=== PATIENT | male | born 1940 | race Caucasian/White ===

== ENCOUNTER → 2016-10-06 | Outpatient (CLI) | payer MEDICARE ==
[2016-10-06 11:11] LABS: Blood Urea Nitrogen 24 mg/dL (9-20); Non-African American GFR(MDRD) >60 (>60 ml/min/1.73 sqM)
== END | disposition home or self-care (01) ==
LOC: LABWHC1 09:57
PROVIDERS: ATTEND Physical Medicine & Rehabilitation
DX: M48.06 Spinal stenosis, lumbar region (principal); M47.896 Other spondylosis, lumbar region; M54.5 Low back pain; Z86.39 Personal history of other endocrine, nutritional and metabolic disease; Z85.46 Personal history of malignant neoplasm of prostate
CPT/HCPCS: 36415; 82565; 84520

== ENCOUNTER 2017-10-20 06:34 | Day surgery (SDC) | payer MEDICARE ==
[~2017-10-20 06:34] MED LIST: LIDOCAINE 1% 20 ML VIAL (10MG/ML) FOR IV START INTRADERMA PRN; ONDANSETRON 4 MG/2 ML VIAL IVP ONE
[2017-10-20] MEDS: PHENYLEPHRINE 10% OPHTH DROPS 5 ML BTL OP ONE ×3 (07:03→07:17)
[2017-10-20] MEDS: CYCLOPENTOLATE 1% OPHTH SOLN 2 ML BTL OP ONE ×3 (07:05→07:19)
[2017-10-20] MEDS: FLURBIPROFEN 0.03% OPHTH DROPS 2.5 ML BTL OP ONE ×3 (07:08→07:21)
[2017-10-20] MEDS: LACTATED RINGERS 1,000 ML IV SCH ×2 (07:14→07:47)
[2017-10-20] MEDS ORDERED: LIDOCAINE 1% 20 ML VIAL (10MG/ML) FOR IV START INTRADERMA ONE (07:14)
[2017-10-20 07:17] VITALS: TEMP 97.8
[2017-10-20 07:17] LABS: Glucose,Whole Blood 92 mg/dL (75-99)
[2017-10-20] MEDS ORDERED: BALANCED SALT IRRIG SOLN COMB2 15 ML IRRIG.SOLN IRRIGATION ONE (07:33)
[2017-10-20] MEDS: BUPIVACAINE (PF) 0.75% 5 ML, HYALURONIDASE, HUMAN RECOMB 150 UNIT, LIDOCAINE 2% (PF) 10... MISCELLANE ONE ×6 (07:33→07:54)
[2017-10-20] MEDS ORDERED: HYALURONATE SODIUM INTRAOCULAR 1 EACH SYRINGE (10MG/ML) INTRAOCULA ONE (07:33)
[2017-10-20] MEDS ORDERED: PROPOFOL 10 MG/ML 20 ML VIAL IV ONE (07:48)
[2017-10-20] MEDS ORDERED: EPINEPHrine (PF) 0.5 ML in BALANCED SALT IRRIG SOLN COMB2 500 ML IRRIGATION ONE (07:51)
[2017-10-20 08:15] VITALS: RESP 18
--- NOTE | 2017-10-20 08:16 | P.OP ---
Date of Procedure: 10/20/17 Procedure(s) Performed: PREOPERATIVE DIAGNOSIS: Cataract, left eye. POSTOPERATIVE DIAGNOSIS: Cataract, left eye. OPERATION: Phacoemulsification cataract, left eye. DESCRIPTION OF PROCEDURE: The patient was taken to the preoperative holding area. Intravenous Propofol was given so as to bring about adequate sedation. The following mixture was given for local anesthesia: 5 mL of 2% lidocaine, 5 mL of 0.75% Marcaine, and 1 mL of Wydase. Approximately 4 mL was injected in the retrobulbar space of the surgical eye. Additional 1 mL was then directed to the temporal area of the surgical eye. This was performed to allow adequate neurological block of the facial muscles. The patient was revived and then taken into the operative room. The patient was prepped and draped in the usual sterile manner for the operative eye. A lid speculum was put into position. The conjunctiva was resected back from the limbus in the 12 o'clock position. Bleeding was controlled with electrocautery. A #69 blade was then used and a half-thickness scleral incision approximately 1-mm posterior to the limbus was made on bare sclera. This was shelved in the clear cornea using a crescent knife. Next a 15-degree blade was used to make a stab incision at the 3 o' clock position at the corneolimbal interface. Keratome blade was then used and the superior wound was extended into the anterior chamber. Viscoelastic was injected into the anterior chamber and to maintain its form. Next, a cystotome was used and a continuous anterior capsulotomy was made without difficulty. Hydrodissection using a blunt cannula and BSS was performed. Phaco probe was then employed and a groove extending from 12 to 6 o'clock in the lens was created. A Mehran wand was used through the stab incision so as to perform a divide and conquer technique. Next an irrigation aspiration probe was utilized and any residual cortex was removed from the eye. Again, viscoelastic was injected into the anterior chamber. An Kelechi posterior chamber lens implant was placed in the cartridge and injected into the anterior chamber without difficulty. The SinHaivisioney hook was utilized to spin the lens into position and this was again performed without any difficulty. The irrigation and aspiration probe was again employed and any residual viscoelastic was removed from the eye. Then BSS was injected into the limbal stab incision and the anterior chamber re-inflated. The conjunctiva was reapproximated using electrocautery. One drop of 0.25% Timoptic was placed over the corneal along with TobraDex ophthalmic ointment. Two sterile patches and a Hyatt eye shield were taped into position. The patient was transported to the recovery room in stable condition. Pathology: none sent Condition: stable Disposition: same day
[2017-10-20 08:30] VITALS: BP 141/65; PULSE 46
[2017-10-20] MEDS ORDERED: TIMOLOL 0.5% OPHTH SOLN (PF) 0.2 ML DROPERETTE OP ONE (23:00)
[2017-10-20] MEDS ORDERED: GENTAMICIN/PREDNISOL AC OPHTH OINT 3.5GM OPHTHALMIC ONE (23:00)
== END 2017-10-20 09:10 | disposition home or self-care (01) ==
LOC: OR 06:34
PROVIDERS: ATTEND Ophthalmology
DX: E11.36 Type 2 diabetes mellitus with diabetic cataract (principal); Z79.84 Long term (current) use of oral hypoglycemic drugs; I25.10 Atherosclerotic heart disease of native coronary artery without angina pectoris; I10 Essential (primary) hypertension; Z87.891 Personal history of nicotine dependence; M19.90 Unspecified osteoarthritis, unspecified site; J44.9 Chronic obstructive pulmonary disease, unspecified; K21.9 Gastro-esophageal reflux disease without esophagitis; Z79.82 Long term (current) use of aspirin; Z79.899 Other long term (current) drug therapy; Z91.041 Radiographic dye allergy status
CPT/HCPCS: 66984; V2632; J3470; J2001; J0171; J2704

== ENCOUNTER → 2018-06-15 | Outpatient (CLI) | payer MEDICARE ==
[2018-06-15 12:22] LABS: Blood Urea Nitrogen 30 mg/dL (9-20)
== END | disposition home or self-care (01) ==
LOC: LABWHC1 11:20
PROVIDERS: ATTEND Otolaryngology Otology & Neurotology
DX: D33.3 Benign neoplasm of cranial nerves (principal)
CPT/HCPCS: 36415; 82565; 84520

== ENCOUNTER → 2018-06-23 | Outpatient (CLI) | payer MEDICARE ==
[2018-06-23 11:50] LABS: Blood Urea Nitrogen 29 mg/dL (9-20)
== END ==
LOC: LABWHC1 10:58
PROVIDERS: ATTEND Otolaryngology Otology & Neurotology
DX: D33.3 Benign neoplasm of cranial nerves (principal)
CPT/HCPCS: 36415; 82565; 84520

== ENCOUNTER 2019-02-23 17:29 | Emergency (ER) | payer MEDICARE ==
--- NOTE | 2019-02-23 18:40 | XR ---
PROCEDURE: XR forearm LT - 2V DATE AND TIME: 02/23/2019 6:14 PM CLINICAL INDICATION: PHH; Pain TECHNIQUE: Department protocol COMPARISON: None FINDINGS: There is no fracture or malalignment. The soft tissues are unremarkable. IMPRESSION: NO ACUTE PROCESS.
--- NOTE | 2019-02-23 19:05 | CT ---
EXAMINATION TYPE: CT brain raymon mejia DATE OF EXAM: 02/23/2019 COMPARISON: None HISTORY: Lawn tractor fell from chain fall and hit patient on top of head, pushing his head forward. Neck pain. CT DLP: 1471 mGycm Automated exposure control for dose reduction was used. TECHNIQUE: CT scan of the head and cervical spine are performed without contrast. FINDINGS: There is no acute intracranial hemorrhage, mass effect, or midline shift identified. The ventricles and sulci are within normal limits in size. The globes are intact and the visualized sin uses are clear. Cervical spine is visualized in its entirety from C1 through upper thoracic levels and demonstrates s atisfactory alignment without evidence of acute fracture or dislocation. Prevertebral soft tissue ap pears within normal limits. The C1-C2 articulation is unremarkable. IMPRESSION: 1. There is no acute fracture or dislocation evident in the cervical spine. 2. No acute intracranial hemorrhage, mass effect, or midline shift is seen.
[2019-02-23] MEDS ORDERED: DIPH,PERTUS(ACELL)TETVAC-LF 0.5 ML VIAL IM ONE (19:38)
[2019-02-23] MEDS ORDERED: CEPHALEXIN 500MG STARTER PACK 4 CAP BTL PO STA (19:41)
--- NOTE | 2019-02-23 20:33 | ED ---
General Adult HPI - General Chief complaint: Trauma Stated complaint: HEAD, NECK, LEFT ARM, LEFT HAND, CRUSHING INJURY Time Seen by Provider: 02/23/19 19:30 Source: patient Mode of arrival: ambulatory Limitations: no limitations - History of Present Illness Initial comments: 79-year-old male patient presents to the emergency department today for evaluati on after a tractor fell on him. Patient states around 5:00 this afternoon he was working on his tractor, states the front end was being held up by a strap. He states the strap broke and the tractor fell down upon him. States the front bumper struck him in the head and caused injury to his left forearm. Patient denies any chest or abdominal injury. Denies any loss of consciousness with this. Denies any current headache, neck pain, or back pain. Patient denies any use of anticoagulant or antiplatelet medications. Denies any shortness of breath, abdominal pain, nausea, or vomiting. Denies any numbness or tingling to the extremities. Denies any dizziness or weakness. Patient denies any chest pain, or difficulties with bowel movements or urination. He is unsure when his last tetanus vaccine was given. - Related Data Home Medications Medication Instructions Recorded Confirmed Lovastatin [Mevacor] 40 mg PO DAILY 10/09/17 02/23/19 Metoprolol Tartrate 12.5 mg PO BID 10/09/17 02/23/19 Pioglitazone [Actos] 30 mg PO DAILY 10/09/17 02/23/19 Sertraline [Zoloft] 150 mg PO DAILY 10/09/17 02/23/19 glyBURIDE [Diabeta] 7.5 mg PO DAILY 10/09/17 02/23/19 Lisinopril-Hctz 20-12.5 mg 1 tab PO BID 02/23/19 02/23/19 [Zestoretic 20-12.5] glyBURIDE [Diabeta] 2.5 mg PO HS 02/23/19 02/23/19 Previous Rx's Medication Instructions Recorded Cephalexin [Keflex] 500 mg PO Q6H #28 cap 02/23/19 Allergies Allergy/AdvReac Type Severity Reaction Status Date / Time Iodinated Contrast- Oral and Allergy Unknown Verified 02/23/19 20:37 IV Dye [Iodinated Contrast Media - IV Dye] Review of Systems ROS Statement: Those systems with pertinent positive or pertinent negative responses have been documented in the HPI. ROS Other: All systems not noted in ROS Statement are negative. Past Medical History Past Medical History: Cancer, COPD, Diabetes Mellitus, Hyperlipidemia, Hypertension Additional Past Medical History / Comment(s): Prostate cancer, cataracts, INNER EAR TUMOR (ACOUSTIC NEUROMA) History of Any Multi-Drug Resistant Organisms: None Reported Past Surgical History: Appendectomy, Heart Catheterization, Orthopedic Surgery, Prostate Surgery Additional Past Surgical History / Comment(s): cyst removed right hand, cataract surgery, PROSTATECOMY. BILATERAL ROTATOR CUFF. Past Anesthesia/Blood Transfusion Reactions: Motion Sickness Past Psychological History: Anxiety Smoking Status: Former smoker Past Alcohol Use History: Rare Past Drug Use History: None Reported General Exam Limitations: no limitations General appearance: alert, in no apparent distress, other (This is a well- developed, well-nourished elderly male patient in no acute distress. Vital signs upon presentation are temperature 97.1F, pulse 64, respirations 18, blood pressure 122/71, pulse ox 97% on room air.) Head exam: Present: other (There is an abrasion noted to the parietal scalp. No active bleeding. No bony step-off or deformity noted to palpation surrounding the site.) Eye exam: Present: normal appearance, PERRL, EOMI. Absent: scleral icterus, conjunctival injection, nystagmus, periorbital swelling ENT exam: Present: normal exam, normal oropharynx, mucous membranes moist, TM's normal bilaterally, other (No raccoon or Martinez sign) Neck exam: Present: normal inspection, other (No bony step-off or deformity noted to for midline palpation of the posterior cervical spine. No tenderness.). Absent: tenderness, meningismus, full ROM (C-collar in place), lymphadenopathy Respiratory exam: Present: normal lung sounds bilaterally. Absent: respiratory distress, wheezes, rales, rhonchi, stridor Cardiovascular Exam: Present: regular rate, normal rhythm, normal heart sounds. Absent: systolic murmur, diastolic murmur, rubs, gallop, clicks GI/Abdominal exam: Present: soft, normal bowel sounds. Absent: distended, tenderness, guarding, rebound, rigid Extremities exam: Present: full ROM, normal capillary refill, other (There is a large skin tear noted to the left dorsal forearm, bleeding is controlled. There is also soft tissue swelling and ecchymosis noted surrounding the site. Skin is otherwise pink, warm, dry. Cap refills less than 3 seconds. Radial pulses 2+ and equal bilaterally.). Absent: normal inspection, tenderness, pedal edema, joint swelling, calf tenderness Back exam: Present: normal inspection, other (Nontender, no step-off, no deformity to firm midline palpation of the thoracic and lumbar vertebrae. Full range of motion without pain or limitation.). Absent: vertebral tenderness Neurological exam: Present: alert, oriented X3, CN II-XII intact Psychiatric exam: Present: normal affect, normal mood Skin exam: Present: warm, dry, intact, normal color. Absent: rash Course Vital Signs 02/23/19 02/23/19 17:32 20:45 Temperature 97.1 F L 97.9 F Pulse Rate 64 86 Respiratory 18 16 Rate Blood Pressure 122/71 158/75 O2 Sat by Pulse 97 98 Oximetry Medical Decision Making - Medical Decision Making 79-year-old male patient presented to the emergency department today for evaluation of head injury and left forearm injury after a tractor fell on top of him. Physical examination did reveal abrasion to the parietal scalp and skin tear to the left forearm with surrounding hematoma. X-rays of the left forearm and CT brain and C-spine were obtained and showed no acute abnormalities. I did perform wound care to the left skin tear. Dressing was applied. We did update patient's tetanus. We'll discharge to follow-up with his primary care physician for recheck in 1-2 days. He was educated regarding signs or symptoms of infection and appropriate wound care practices. Return parameters were discussed in detail. He verbalizes understanding and agrees with this plan. - Radiology Data Radiology results: report reviewed, image reviewed Two-view x-ray of the left forearm is obtained. Report was reviewed in its entirety. Impression by Dr. Jocy Gage shows no acute process. CT brain and C-spine without contrast was obtained. Report was reviewed in its entirety. Impression by Dr. Jocy Gage shows no acute fracture dislocation evident in the cervical spine. No acute intracranial hemorrhage, mass effect, or midline shift is seen. Disposition Clinical Impression: Head injury, Scalp abrasion, Skin tear of left forearm without complication, Contusion of left forearm Disposition: HOME SELF-CARE Condition: Good Instructions (If sedation given, give patient instructions): Head Injury (ED), Contusion in Adults (ED), Abrasion (ED), Skin Tear (ED) Additional Instructions: Perform wound care daily - cleanse with warm water and antibacterial soap, apply antibiotic ointment, apply oil dressing, apply gauze, wrap with gauze roll. Monitor for signs or symptoms of infection including but not limited to redness, swelling, drainage of pus, fever, or chills. Complete antibiotic prescription in full. Follow-up with your primary care physician for recheck in 1-2 days. Return to the emergency department immediately for any new, worsening, or concerning symptoms. Prescriptions: Cephalexin [Keflex] 500 mg PO Q6H #28 cap Is patient prescribed a controlled substance at d/c from ED?: No Referrals: Carlton Felix MD [Primary Care Provider] - 1-2 days Time of Disposition: 20:33
[2019-02-23 20:46] VITALS: BP 158/75; PULSE 86; RESP 16; TEMP 97.9
== END 2019-02-23 20:53 | disposition home or self-care (01) ==
LOC: EC 17:29
DX: S51.812A Laceration without foreign body of left forearm, initial encounter (principal); S00.01XA Abrasion of scalp, initial encounter; S17.9XXA Crushing injury of neck, part unspecified, initial encounter; E11.9 Type 2 diabetes mellitus without complications; E78.5 Hyperlipidemia, unspecified; I10 Essential (primary) hypertension; F41.9 Anxiety disorder, unspecified; Z85.46 Personal history of malignant neoplasm of prostate; Z95.818 Presence of other cardiac implants and grafts; Z87.891 Personal history of nicotine dependence; Z79.84 Long term (current) use of oral hypoglycemic drugs; Z79.899 Other long term (current) drug therapy; Z91.041 Radiographic dye allergy status; Z23 Encounter for immunization; W20.8XXA Other cause of strike by thrown, projected or falling object, initial encounter; Y93.89 Activity, other specified
CPT/HCPCS: 73090; 72125; 70450; 90715; 99284; 90471; L0120

== ENCOUNTER → 2021-07-18 | Outpatient (CLI) | payer MEDICARE ==
--- NOTE | 2021-07-18 14:41 | XR ---
EXAMINATION TYPE: XR chest 2V DATE OF EXAM: 07/18/2021 COMPARISON: Chest x-ray 11/27/2013 HISTORY: R07.89 OTHER CHEST PAIN TECHNIQUE: Frontal and lateral views of the chest are obtained. FINDINGS: There is no focal air space opacity, pleural effusion, or pneumothorax seen. The cardiac silhouette size is within normal limits. The osseous structures are intact and there is thoracic sp ondylosis, spinal curvature, flowing anterior osteophytes along the thoracic spine with relative pres ervation of the disc spaces suggest diffuse idiopathic skeletal hyperostosis. IMPRESSION: No acute cardiopulmonary process. Additional findings above.
== END | disposition home or self-care (01) ==
LOC: LABWHC1 13:17
PROVIDERS: ATTEND Family Medicine
DX: R07.89 Other chest pain (principal); R94.31 Abnormal electrocardiogram [ECG] [EKG]
CPT/HCPCS: 36415; 71046; 93005

== ENCOUNTER 2021-11-24 12:13 | Inpatient (IN) | payer MEDICARE ==
[2021-11-24] MEDS ORDERED: NITROGLYCERIN OINT 1 INCH/GM PACKET TOPICAL STA (12:25)
[2021-11-24] MEDS ORDERED: ASPIRIN 81 MG PO STA (12:25)
--- NOTE | 2021-11-24 12:29 | ED ---
General Adult HPI - General Chief complaint: Chest Pain Stated complaint: Chest Pain Time Seen by Provider: 11/24/21 12:21 Source: patient, RN notes reviewed Mode of arrival: wheelchair Limitations: no limitations - History of Present Illness Initial comments: Patient is a pleasant 81-year-old male presenting to the emergency department chest discomfort. Onset was when he woke this morning around 4 hours ago. Discomfort is mild but persistent. Discomfort feels like tightness. No associated dyspnea, nausea, or diaphoresis. Patient does have history of heart catheterization around 5 years ago with some plaque buildup however did not need a stent. No leg pain or leg swelling. - Related Data Home Medications Medication Instructions Recorded Confirmed Lovastatin [Mevacor] 40 mg PO DAILY 10/09/17 02/23/19 Metoprolol Tartrate 12.5 mg PO BID 10/09/17 02/23/19 Pioglitazone [Actos] 30 mg PO DAILY 10/09/17 02/23/19 Sertraline [Zoloft] 150 mg PO DAILY 10/09/17 02/23/19 glyBURIDE [Diabeta] 7.5 mg PO DAILY 10/09/17 02/23/19 Lisinopril-Hctz 20-12.5 mg 1 tab PO BID 02/23/19 02/23/19 [Zestoretic 20-12.5] glyBURIDE [Diabeta] 2.5 mg PO HS 02/23/19 02/23/19 Previous Rx's Medication Instructions Recorded Cephalexin [Keflex] 500 mg PO Q6H #28 cap 02/23/19 Allergies Allergy/AdvReac Type Severity Reaction Status Date / Time Iodinated Contrast Media Allergy Unknown Verified 11/24/21 12:18 [Iodinated Contrast Media - IV Dye] Review of Systems ROS Statement: Those systems with pertinent positive or pertinent negative responses have been documented in the HPI. ROS Other: All systems not noted in ROS Statement are negative. Constitutional: Denies: fever Eyes: Denies: eye pain ENT: Denies: ear pain Respiratory: Denies: cough Cardiovascular: Reports: chest pain Endocrine: Denies: fatigue Gastrointestinal: Denies: abdominal pain Genitourinary: Denies: dysuria Musculoskeletal: Denies: back pain Skin: Denies: rash Neurological: Denies: weakness Past Medical History Past Medical History: Cancer, COPD, Diabetes Mellitus, Hyperlipidemia, Hypertension Additional Past Medical History / Comment(s): Prostate cancer, cataracts, INNER EAR TUMOR (ACOUSTIC NEUROMA) History of Any Multi-Drug Resistant Organisms: None Reported Past Surgical History: Appendectomy, Heart Catheterization, Orthopedic Surgery, Prostate Surgery Additional Past Surgical History / Comment(s): cyst removed right hand, cataract surgery, PROSTATECOMY. BILATERAL ROTATOR CUFF. Past Anesthesia/Blood Transfusion Reactions: Motion Sickness Past Psychological History: Anxiety Smoking Status: Former smoker Past Alcohol Use History: Rare Past Drug Use History: None Reported General Exam Limitations: no limitations General appearance: alert, in no apparent distress Head exam: Present: normocephalic Eye exam: Present: normal appearance Neck exam: Present: normal inspection Respiratory exam: Present: normal lung sounds bilaterally. Absent: chest wall tenderness Cardiovascular Exam: Present: regular rate, normal rhythm, normal heart sounds Expanded Peripheral pulses: 2+: Radial (R), Radial (L), Posterior Tibialis (R), Posterior Tibialis (L) GI/Abdominal exam: Present: soft. Absent: tenderness Extremities exam: Present: normal inspection. Absent: pedal edema, calf tenderness Neurological exam: Present: alert Psychiatric exam: Present: normal affect, normal mood Skin exam: Present: normal color Course Vital Signs 11/24/21 11/24/21 12:16 12:37 Temperature 98.3 F Pulse Rate 61 80 Respiratory 18 18 Rate Blood Pressure 137/81 128/76 O2 Sat by Pulse 96 96 Oximetry EKG Findings - EKG Comments: EKG Findings:: Sinus rhythm rate of 62. [place] 182. QRS 87. QT 302. QTC 37. Normal QRS. No acute ST change Medical Decision Making - Medical Decision Making Patient reevaluated and unchanged. Patient is updated on results and plan. Dr. Jack has been paged for admission, covering Dr. Felix. - Lab Data Result diagrams: 11/24/21 12:28 11/24/21 12:28 Lab Results 11/24/21 11/24/21 11/24/21 Range/Units 12:28 12:28 12:28 WBC 8.9 (3.8-10.6) k/uL RBC 4.85 (4.30-5.90) m/uL Hgb 15.6 (13.0-17.5) gm/dL Hct 47.6 (39.0-53.0) % MCV 98.1 (80.0-100.0) fL MCH 32.2 (25.0-35.0) pg MCHC 32.9 (31.0-37.0) g/dL RDW 12.8 (11.5-15.5) % Plt Count 242 (150-450) k/uL MPV 6.9 Neutrophils % 72 % Lymphocytes % 19 % Monocytes % 5 % Eosinophils % 1 % Basophils % 0 % Neutrophils # 6.4 (1.3-7.7) k/uL Lymphocytes # 1.7 (1.0-4.8) k/uL Monocytes # 0.5 (0-1.0) k/uL Eosinophils # 0.1 (0-0.7) k/uL Basophils # 0.0 (0-0.2) k/uL PT 10.2 (9.0-12.0) sec INR 0.9 (<1.2) APTT 24.9 (22.0-30.0) sec Sodium 136 L (137-145) mmol/L Potassium 4.6 (3.5-5.1) mmol/L Chloride 105 (98-107) mmol/L Carbon Dioxide 23 (22-30) mmol/L Anion Gap 8 mmol/L BUN 23 H (9-20) mg/dL Creatinine 0.87 (0.66-1.25) mg/dL Est GFR (CKD-EPI)AfAm >90 (>60 ml/min/1.73 sqM) Est GFR (CKD-EPI)NonAf 82 (>60 ml/min/1.73 sqM) Glucose 173 H (74-99) mg/dL Calcium 9.6 (8.4-10.2) mg/dL Magnesium 2.1 (1.6-2.3) mg/dL Total Bilirubin 0.7 (0.2-1.3) mg/dL AST 27 (17-59) U/L ALT 30 (4-49) U/L Alkaline Phosphatase 90 (38-126) U/L Troponin I (0.000-0.034) ng/mL Total Protein 7.7 (6.3-8.2) g/dL Albumin 4.6 (3.5-5.0) g/dL 11/24/21 Range/Units 12:28 WBC (3.8-10.6) k/uL RBC (4.30-5.90) m/uL Hgb (13.0-17.5) gm/dL Hct (39.0-53.0) % MCV (80.0-100.0) fL MCH (25.0-35.0) pg MCHC (31.0-37.0) g/dL RDW (11.5-15.5) % Plt Count (150-450) k/uL MPV Neutrophils % % Lymphocytes % % Monocytes % % Eosinophils % % Basophils % % Neutrophils # (1.3-7.7) k/uL Lymphocytes # (1.0-4.8) k/uL Monocytes # (0-1.0) k/uL Eosinophils # (0-0.7) k/uL Basophils # (0-0.2) k/uL PT (9.0-12.0) sec INR (<1.2) APTT (22.0-30.0) sec Sodium (137-145) mmol/L Potassium (3.5-5.1) mmol/L Chloride (98-107) mmol/L Carbon Dioxide (22-30) mmol/L Anion Gap mmol/L BUN (9-20) mg/dL Creatinine (0.66-1.25) mg/dL Est GFR (CKD-EPI)AfAm (>60 ml/min/1.73 sqM) Est GFR (CKD-EPI)NonAf (>60 ml/min/1.73 sqM) Glucose (74-99) mg/dL Calcium (8.4-10.2) mg/dL Magnesium (1.6-2.3) mg/dL Total Bilirubin (0.2-1.3) mg/dL AST (17-59) U/L ALT (4-49) U/L Alkaline Phosphatase (38-126) U/L Troponin I <0.012 (0.000-0.034) ng/mL Total Protein (6.3-8.2) g/dL Albumin (3.5-5.0) g/dL - Radiology Data Radiology results: image reviewed Disposition Clinical Impression: Chest pain Disposition: ADMITTED IP TO THIS [facility] Is patient prescribed a controlled substance at d/c from ED?: No Referrals: Carlton Felix MD [Primary Care Provider] - 1-2 days Decision Time: 13:20
[2021-11-24 12:39] LABS: Basophils % (A) 0 %; Eosinophils # (A) 0.1 k/uL (0-0.7); Eosinophils % (A) 1 %; HCT 47.6 % (39.0-53.0); HGB 15.6 gm/dL (13.0-17.5); Lymphocytes # (A) 1.7 k/uL (1.0-4.8); Lymphocytes % (A) 19 %; MCH 32.2 pg (25.0-35.0); MCHC 32.9 g/dL (31.0-37.0); MCV 98.1 fL (80.0-100.0); Mean Platelet Volume 6.9; Monocytes # (A) 0.5 k/uL (0-1.0); Monocytes % (A) 5 %; Neutrophils # (A) 6.4 k/uL (1.3-7.7); Neutrophils % (A) 72 %; Platelet Count 242 k/uL (150-450); RBC 4.85 m/uL (4.30-5.90); RDW 12.8 % (11.5-15.5); WBC 8.9 k/uL (3.8-10.6)
[2021-11-24 12:51] LABS: ALT 30 U/L (4-49); AST 27 U/L (17-59); African American GFR (CKD) >90 (>60 ml/min/1.73 sqM); Albumin 4.6 g/dL (3.5-5.0); Alkaline Phosphatase 90 U/L (38-126); Anion Gap 8 mmol/L; Blood Urea Nitrogen 23 mg/dL (9-20); Calcium 9.6 mg/dL (8.4-10.2); Carbon Dioxide 23 mmol/L (22-30); Chloride 105 mmol/L (98-107); Glucose 173 mg/dL (74-99); Magnesium 2.1 mg/dL (1.6-2.3); Non-African American GFR(CKD) 82 (>60 ml/min/1.73 sqM); Potassium 4.6 mmol/L (3.5-5.1); Sodium 136 mmol/L (137-145); Total Bilirubin 0.7 mg/dL (0.2-1.3); Total Protein 7.7 g/dL (6.3-8.2)
[2021-11-24 12:54] LABS: INR 0.9 (<1.2); Partial Thromboplastin Time 24.9 sec (22.0-30.0); Prothrombin Time 10.2 sec (9.0-12.0)
[2021-11-24] MEDS ORDERED: NITROGLYCERIN SL TABS 0.4 MG TAB SUBLINGUAL PRN ×2 (13:18→17:09)
--- NOTE | 2021-11-24 13:20 | XR ---
EXAMINATION TYPE: XR chest 2V DATE OF EXAM: 11/24/2021 COMPARISON: Chest x-ray 07/18/2021 HISTORY: Chest pain TECHNIQUE: Frontal and lateral views of the chest are obtained. FINDINGS: There is no focal air space opacity, pleural effusion, or pneumothorax seen. The cardiac silhouette size is within normal limits. There are overlying leads. The osseous structures are intac t. IMPRESSION: No acute cardiopulmonary process.
[2021-11-24 17:31] LABS: Glucose,Whole Blood 174 mg/dL (75-99)
[2021-11-24] MEDS: NITROGLYCERIN OINT 1 INCH/GM PACKET TOPICAL SCH (17:51)
[2021-11-24] MEDS: INSULIN ASPART (NovoLOG) 100 UNIT/ML VIAL SQ SCH ×2 (17:51→20:58)
[2021-11-24 20:50] LABS: Glucose,Whole Blood 157 mg/dL (75-99)
[2021-11-24] MEDS: METOPROLOL TARTRATE 25 MG TAB PO SCH (20:57)
[2021-11-24] MEDS: ASPIRIN 81 MG PO SCH (20:58)
--- NOTE | 2021-11-24 21:03 | P.HPIM ---
History of Present Illness H&P Date: 11/24/21 Chief Complaint: Chest pain Patient is a 81-year-old male with a known history of hypertension, hyperlipidemia, diabetes type 2 insulin-dependent and history of prostate cancer status post surgery and prior cardiac catheterization several years ago, anxiety and previous history of smoking presents to ER with complaints of chest pain. Patient states that he woke up in the morning with chest pain and felt like tightness in the left retrosternal region. Pain lasted for about 4 hours and mild persistent since then. No associated shortness of breath. No nausea or vomiting or headache or dizziness or lightheadedness. No diaphoresis. Denied any leg swelling. No recent illnesses. Denies any exertional dyspnea. No fever no chills. Chest x-ray showed no acute cardiopulmonary process EKG showed normal sinus rhythm Laboratory showed WBC 8.9 hemoglobin 15.6 and platelets 242 sodium 136 potassium 4.6 chloride 105 BUN 23 and creatinine 0.87 blood sugar is 173 liver enzymes are not elevated troponin x2 - and magnesium 2.1. Review of Systems Constitutional: Patient denies any fever or chills . No generalized weakness or weight loss. Abdomen: Patient denied nausea vomiting and diarrhea and abdominal pain. Cardiovascular: Patient denies any chest pain or short of breath no palpitations. Respiratory: patient denied any cough or sputum production. No shortness of breath Neurologic: Patient denied any numbness or tingling headache. Musculoskeletal: Patient denies any complaints of joint swelling or deformity. Skin: Negative Psychiatric: Negative Endocrine: No heat or cold intolerance. No recent weight gain. Genitourinary: No dysuria or hematuria. All other 14 point ROS negative except the above Past Medical History Past Medical History: Cancer, COPD, Diabetes Mellitus, Hyperlipidemia, Hypertension Additional Past Medical History / Comment(s): Prostate cancer, cataracts, INNER EAR TUMOR (ACOUSTIC NEUROMA) History of Any Multi-Drug Resistant Organisms: None Reported Past Surgical History: Appendectomy, Heart Catheterization, Orthopedic Surgery, Prostate Surgery Additional Past Surgical History / Comment(s): cyst removed right hand, cataract surgery, PROSTATECOMY. BILATERAL ROTATOR CUFF. Past Anesthesia/Blood Transfusion Reactions: Motion Sickness Past Psychological History: Anxiety Smoking Status: Former smoker Past Alcohol Use History: Rare Additional Past Alcohol Use History / Comment(s): QUIT SMOKING 2005, FOR 50 YRS, .5/PPD. Past Drug Use History: None Reported Medications and Allergies Home Medications Medication Instructions Recorded Confirmed Type Lovastatin [Mevacor] 40 mg PO DAILY 10/09/17 11/24/21 History Metoprolol Tartrate 12.5 mg PO BID 10/09/17 11/24/21 History Sertraline [Zoloft] 150 mg PO DAILY 10/09/17 11/24/21 History Lisinopril-Hctz 20-12.5 mg 1 tab PO BID 02/23/19 11/24/21 History [Zestoretic 20-12.5] glyBURIDE [Diabeta] 7.5 mg PO DAILY 02/23/19 11/24/21 History Aspirin EC [Ecotrin Low Dose] 81 mg PO BID 11/24/21 11/24/21 History Dulaglutide [Trulicity] 0.75 mg SQ WE 11/24/21 11/24/21 History LORazepam [Ativan] 0.5 mg PO DAILY PRN 11/24/21 11/24/21 History Nitroglycerin Sl Tabs [Nitrostat] 0.4 mg SUBLINGUAL Q5M PRN 11/24/21 11/24/21 History Propylene Glycol/Peg 400/Pf 1 dropper BOTH EYES HS 11/24/21 11/24/21 History [Systane 0.3-0.4% Eye Drop] Allergies Allergy/AdvReac Type Severity Reaction Status Date / Time Iodinated Contrast Media Allergy Unknown Verified 11/24/21 14:31 [Iodinated Contrast Media - IV Dye] Physical Exam Vitals: Vital Signs Temp Pulse Pulse Resp BP BP Pulse Ox 11/24/21 16:47 97.5 F L 60 16 103/66 97 11/24/21 16:16 64 18 105/62 96 11/24/21 12:37 80 18 128/76 96 11/24/21 12:16 98.3 F 61 18 137/81 96 Intake and Output 11/24/21 11/24/21 11/24/21 06:59 14:59 22:59 Other: Weight 90.718 kg PHYSICAL EXAMINATION: Patient is lying in the bed comfortably, no acute distress, awake alert and oriented.. HEENT: Normocephalic. Neck is supple. Pupils reactive. Nostrils clear. Oral cavity is moist. Neck reveals no JVD, carotid bruits, or thyromegaly. CHEST EXAMINATION: Trachea is central. Symmetrical expansion. Lung bowman clear to auscultation and percussion. CARDIAC: Normal S1, S2 with no gallops. No murmurs ABDOMEN: Soft. Bowel sounds normal. No organomegaly. No abdominal bruits. Extremities: reveal no edema. No clubbing or cyanosis Neurologically awake, alert, oriented x3 with well-coordinated movements. No focal deficits noted Skin: No rash or skin lesions. Psychiatric: Cooperative. Nonsuicidal Musculoskeletal: No joint swelling or deformity. Normal range of motion. Results CBC & Chem 7: 11/24/21 12:28 11/24/21 12:28 Labs: Abnormal Lab Results - Last 24 Hours (Table) 11/24/21 11/24/21 11/24/21 Range/Units 12:28 17:30 20:48 Sodium 136 L (137-145) mmol/L BUN 23 H (9-20) mg/dL Glucose 173 H (74-99) mg/dL POC Glucose (mg/dL) 174 H 157 H (75-99) mg/dL Thrombosis Risk Factor Assmnt - DVT/VTE Prophylaxis DVT/VTE Prophylaxis: Pharmacologic Prophylaxis ordered - Choose All That Apply Each Risk Factor Represents 3 Points: Age 75 years or older Thrombosis Risk Factor Assessment Total Risk Factor Score: 3 Thrombosis Risk Factor Assessment Level: Moderate Risk Assessment and Plan Assessment: Atypical chest pain. Ruled out ACS. Prior history of cardiac catheterization 5 years ago with some plaque buildup. Hypertension Diabetes type 2 insulin-dependent Hyperlipidemia History of prostate cancer status post surgery Anxiety Please history of smoking DVT prophylaxis with heparin subcu Plan: Patient will be continued on telemetry monitoring. Serial EKG and troponin x2 - . Patient had previous history of stress test about couple years ago and also has follow-up appointment with . Cardiology was consulted. Continue with insulin sliding scale for better blood sugar control. Patient was given a dose of aspirin and continue with aspirin and statins and metoprolol. Follow-up closely.
[2021-11-24] MEDS: NON FORMULARY DRUG (Propylene Glycol/Peg 400/Pf [Systane 0.3-0.4% Eye Drop] 1 EACH Dropere BOTH EYES SCH (21:04)
[2021-11-25] MEDS: NITROGLYCERIN OINT 1 INCH/GM PACKET TOPICAL SCH ×2 (00:02→05:51)
[2021-11-25] MEDS: HEPARIN SODIUM,PORCINE/PF 5,000 UNIT/0.5 ML SYRINGE SQ SCH ×4 (00:02→23:20)
[2021-11-25 02:22] LABS: Glucose,Whole Blood 137 mg/dL (75-99)
[2021-11-25 07:15] LABS: Glucose,Whole Blood 127 mg/dL (75-99)
[2021-11-25] MEDS ORDERED: ASPIRIN 325 MG TAB PO SCH (09:00)
[2021-11-25] MEDS ORDERED: AMINOPHYLLINE 500 MG/20 ML VIAL IV PRN (09:06)
[2021-11-25] MEDS ORDERED: CAFFEINE CITRATE 60 MG/3 ML VIAL IV PRN (09:06)
[2021-11-25] MEDS ORDERED: REGADENOSON 0.4 MG/5 ML SYRINGE IV PRN (09:06)
--- NOTE | 2021-11-25 09:39 | P.CRDCN ---
History of Present Illness History of present illness: HISTORY OF PRESENTING ILLNESS This is a pleasant 81-year-old male past medical history significant for hypertension, dyslipidemia, moderate nonobstructive coronary artery disease, COPD, type 2 diabetes, prostate cancer, and former smoker. He follows in the office with Dr. Victor. We have been asked to see in consultation for chest pain. Patient presents to the emergency department with complaints of left sided chest pain. He states it began at 8:00am yesterday on 11/24/21. Located on the left side of his chest. Describes it as a tightness. Non-radiating. Non-exertional. He states it lasted over 4 hours, he took a sublingual nitro at home with no relief and decided to present to the emergency department. He had no associated palpitations, shortness of breath, diaphoresis, nausea, vomiting, lightheadedness, dizziness. He denies lower extremity edema, symptoms of orthopnea or PND. No syncope or near syncope. He denies history of IN or Stroke. He is a former smoker quit 20 years ago. He recently saw Dr. Victor in the office on 11/14/2021, and a Lexiscan stress test and echocardiogram was recommended. This is scheduled in December 2021. DIAGNOSTICS EKG reveals sinus rhythm, heart rate 62, no significant ST ST-T wave abnormalities. EKG this morning with similar findings. Last Cardiac Catheterization in 10/2013- 60% PLV stenosis RCA, 35-50% stenosis involving the mid-LAD and circumflex. Preserved LV systolic function. Most recent echocardiogram 04/2019 revealed EF 55%, aortic sclerosis, no significant pulmonary hypertension Telemetry tracings indicate sinus mechanism heart rate in the 60s-70s Chest xray no acute pulmonary process Laboratory reviewed, CBC unremarkable, sodium 136, potassium 4.6, BUN 23, serum creatinine 0.8, magnesium 2.1, troponin negative 3 Current home medications include metoprolol titrate 12.5 mg twice a day, lovastatin, lisinoprilwhich were thiazide 2012 0.5 mg twice a day, aspirin 81 mg twice a day, Trilisate the, when necessary nitro, Zoloft REVIEW OF SYSTEMS At the time of my exam: CONSTITUTIONAL: Denies fever or chills. CARDIOVASCULAR: Denies chest pain, shortness of breath, orthopnea, PND or palpitations. RESPIRATORY: Denies cough. GASTROINTESTINAL: Denies abdominal pain, diarrhea, constipation, nausea or vomiting. MUSCULOSKELETAL: Denies myalgias. NEUROLOGIC: Denies numbness, tingling, headache or weakness. ENDOCRINE: Denies fatigue, weight change, polydipsia or polyurina. GENITOURINARY: Denies burning, hematuria or urgency with micturation. HEMATOLOGIC: Denies history of anemia or bleeding. PHYSICAL EXAMINATION Blood pressure 119/55, heart 60, afebrile, saturation 96% on room air CONSTITUTIONAL: No apparent distress. HEENT: Head is normocephalic. Pupils are equal, round. Sclerae anicteric. Mucous membranes of the mouth are moist. No JVD. No carotid bruit. CHEST EXAMINATION: Lungs are clear to auscultation. No chest wall tenderness is noted on palpation or with deep breathing. HEART EXAMINATION: Regular rate and rhythm. S1, S2 heard. No murmurs, gallops or rub. ABDOMEN: Soft, nontender. Positive bowel sounds. EXTREMITIES: 2+ peripheral pulses, no lower extremity edema and no calf tenderness. SKIN: warm, dry NEUROLOGIC EXAMINATION: Patient is awake, alert and oriented x3. ASSESSMENT Chest pain, atypical, acute coronary syndrome is ruled out History of Hypertension Dyslipidemia Moderate nonobstructive coronary artery disease COPD Type 2 diabetes History of prostate cancer Former smoker PLAN An acute coronary event has been ruled out with no EKG evidence of ischemia and negative cardiac enzymes. Obtain 2D echocardiogram and doppler study to assess cardiac structure and function. Perform Lexiscan stress test to assess for stress induced cardiac ischemia. If abnormal will consider coronary angiography. If stress test is normal, ok to discharge from a cardiology perspective, and patient may follow up with Dr. Victor outpatient Thank you kindly for this consultation. Nurse practitioner note has been reviewed by physician. Signing provider agrees with the documented findings, assessment, and plan of care. Past Medical History Past Medical History: Cancer, COPD, Diabetes Mellitus, Hyperlipidemia, Hypertension Additional Past Medical History / Comment(s): Prostate cancer, cataracts, INNER EAR TUMOR (ACOUSTIC NEUROMA) History of Any Multi-Drug Resistant Organisms: None Reported Past Surgical History: Appendectomy, Heart Catheterization, Orthopedic Surgery, Prostate Surgery Additional Past Surgical History / Comment(s): cyst removed right hand, cataract surgery, PROSTATECOMY. BILATERAL ROTATOR CUFF. Past Anesthesia/Blood Transfusion Reactions: Motion Sickness Past Psychological History: Anxiety Smoking Status: Former smoker Past Alcohol Use History: Rare Additional Past Alcohol Use History / Comment(s): QUIT SMOKING 2006, FOR 50 YRS, .5/PPD. Past Drug Use History: None Reported Medications and Allergies Home Medications Medication Instructions Recorded Confirmed Type Lovastatin [Mevacor] 40 mg PO DAILY 10/09/17 11/24/21 History Metoprolol Tartrate 12.5 mg PO BID 10/09/17 11/24/21 History Sertraline [Zoloft] 150 mg PO DAILY 10/09/17 11/24/21 History Lisinopril-Hctz 20-12.5 mg 1 tab PO BID 02/23/19 11/24/21 History [Zestoretic 20-12.5] glyBURIDE [Diabeta] 7.5 mg PO DAILY 02/23/19 11/24/21 History Aspirin EC [Ecotrin Low Dose] 81 mg PO BID 11/24/21 11/24/21 History Dulaglutide [Trulicity] 0.75 mg SQ WE 11/24/21 11/24/21 History LORazepam [Ativan] 0.5 mg PO DAILY PRN 11/24/21 11/24/21 History Nitroglycerin Sl Tabs [Nitrostat] 0.4 mg SUBLINGUAL Q5M PRN 11/24/21 11/24/21 History Propylene Glycol/Peg 400/Pf 1 dropper BOTH EYES HS 11/24/21 11/24/21 History [Systane 0.3-0.4% Eye Drop] Allergies Allergy/AdvReac Type Severity Reaction Status Date / Time Iodinated Contrast Media Allergy Unknown Verified 11/24/21 14:31 [Iodinated Contrast Media - IV Dye] Physical Exam Vitals: Vital Signs Temp Pulse Pulse Resp BP BP Pulse Ox 11/25/21 06:59 98 F 60 18 119/55 96 11/25/21 02:16 98.1 F 66 16 104/59 95 11/24/21 18:59 98.2 F 58 L 16 129/64 96 11/24/21 16:47 97.5 F L 60 16 103/66 97 11/24/21 16:16 64 18 105/62 96 11/24/21 12:37 80 18 128/76 96 11/24/21 12:16 98.3 F 61 18 137/81 96 Intake and Output 11/24/21 11/25/21 11/25/21 22:59 06:59 14:59 Other: # Voids 1 2 Results 11/24/21 12:28 11/24/21 12: Cardiac Enzymes 11/24/21 11/24/21 11/24/21 Range/Units 12: 12:28 15:23 AST 27 (17-59) U/L Troponin I <0.012 <0.012 (0.000-0.034) ng/mL 11/24/21 Range/Units 18:58 AST (17-59) U/L Troponin I <0.012 (0.000-0.034) ng/mL Coagulation 11/24/21 Range/Units 12: PT 10.2 (9.0-12.0) sec APTT 24.9 (22.0-30.0) sec CBC 11/24/21 Range/Units 12: WBC 8.9 (3.8-10.6) k/uL RBC 4.85 (4.30-5.90) m/uL Hgb 15.6 (13.0-17.5) gm/dL Hct 47.6 (39.0-53.0) % Plt Count 242 (150-450) k/uL Comprehensive Metabolic Panel 11/24/21 Range/Units 12:28 Sodium 136 L (137-145) mmol/L Potassium 4.6 (3.5-5.1) mmol/L Chloride 105 (98-107) mmol/L Carbon Dioxide 23 (22-30) mmol/L BUN 23 H (9-20) mg/dL Creatinine 0.87 (0.66-1.25) mg/dL Glucose 173 H (74-99) mg/dL Calcium 9.6 (8.4-10.2) mg/dL AST 27 (17-59) U/L ALT 30 (4-49) U/L Alkaline Phosphatase 90 (38-126) U/L Total Protein 7.7 (6.3-8.2) g/dL Albumin 4.6 (3.5-5.0) g/dL Current Medications Generic Name Dose Route Start Last Admin Trade Name Freq PRN Reason Stop Dose Admin Aspirin 81 mg 11/24/21 21:00 11/24/21 20:58 Aspirin 81 Mg PO 81 mg BID NAVJOT Administration Atorvastatin Calcium 10 mg 11/25/21 09:00 Atorvastatin 10 Mg Tab PO DAILY [facility] Heparin Sodium (Porcine) 5,000 unit 11/25/21 00:00 11/25/21 00:02 Heparin Sodium,Porcine/Pf 5,000 Unit/0.5 Ml Syringe SQ Not Given Q8HR NAVJOT Insulin Aspart 0 unit 11/24/21 17:30 11/24/21 20:58 Insulin Aspart (Novolog) 100 Unit/Ml Vial SQ 1 unit ACHS [facility] Administration Protocol Lisinopril 20 mg 11/25/21 09:00 Lisinopril 20 Mg Tab PO DAILY [facility] Lorazepam 0.5 mg 11/24/21 17:09 Lorazepam 0.5 Mg Tab PO DAILY PRN Anxiety Metoprolol Tartrate 12.5 mg 11/24/21 21:00 11/24/21 20:57 Metoprolol Tartrate 25 Mg Tab PO 12.5 mg BID NAVJOT Administration Nitroglycerin 0.4 mg 11/24/21 13:18 Nitroglycerin Sl Tabs 0.4 Mg Tab SUBLINGUAL Q5M PRN Chest Pain Nitroglycerin 1 inch 11/24/21 18:00 11/25/21 05:51 Nitroglycerin Oint 1 Inch/Gm Packet TOPICAL Not Given Q6HR [facility] Nitroglycerin 0.4 mg 11/24/21 17:09 Nitroglycerin Sl Tabs 0.4 Mg Tab SUBLINGUAL Q5M PRN Chest Pain Non-Formulary Medication 0.75 mg 11/27/21 17:09 Dulaglutide [Trulicity] SQ WE [facility] Non-Formulary Medication 1 dropper 11/24/21 21:00 11/24/21 21:04 Propylene Glycol/Peg 400/Pf [Systane 0.3-0.4% Eye Drop] BOTH EYES Not Given HS [facility] Sertraline HCl 150 mg 11/25/21 09:00 Sertraline 100 Mg Tab PO DAILY [facility] Sodium Chloride 10 ml 11/24/21 21:00 11/24/21 21:00 Sodium Chloride 0.9% Flush 10 Ml Syringe IV 10 ml BID [facility] Administration Intake and Output 11/24/21 11/25/21 11/25/21 22:59 06:59 14:59 Other: # Voids 1 2 11/24/21 12:28 11/24/21 12:28
[2021-11-25 10:28] LABS: African American GFR (CKD) 73.6 (60.0-200.0); BUN/Creat Ratio 22.55 Ratio (12.00-20.00); Blood Urea Nitrogen 24.8 mg/dL (9.0-27.0); Calcium 9.2 mg/dL (8.7-10.3); Carbon Dioxide 21.5 mmol/L (20.0-27.5); Chloride 103 mmol/L (96-109); Chol/HDL Ratio 2.91 Ratio; Glucose 136 mg/dL (70-110); LDL Cholesterol,Calculated 38.8 mg/dL (0.0-131.0); Non-African American GFR(CKD) 63.5 (60.0-200.0); Potassium 4.7 mmol/L (3.5-5.5); Sodium 136 mmol/L (135-145)
--- NOTE | 2021-11-25 11:49 | P.STRESS ---
- Stress Test Note Stress Test Results/Findings: Exam Performed: Exam Date: Reason for Exam: Height: 5 ft 10 in Weight: 90.718 kg Protocol: Stage: Duration of Exercise: Resting Heart Rate: Resting Blood Pressure: Maximum Achieved Heart Rate: Maximum Achieved Blood Pressure: 85% PMHR: 100% PMHR: METS: Technologist Comment: Stress Test Results/Findings: This is a 81-year-old gentleman with history of hypertension, diabetes was admitted to the hospital with chest pain being evaluated for cardiac status. Stress data: Baseline EKG showed sinus rhythm. Blood pressure at rest is 146/75, pulse rate of 70. A standard dose of Lexiscan was infused. EKGs taken during and after infusion did not reveal any significant changes from the baseline. Patient did complain of mild chest pain and headache. Final impression: #1. Negative Lexiscan stress test #2. Report on the nuclear images to be provided by the radiologist
[2021-11-25] MEDS: INSULIN ASPART (NovoLOG) 100 UNIT/ML VIAL SQ SCH ×4 (12:30→22:04)
[2021-11-25] MEDS: SERTRALINE 100 MG TAB PO SCH (12:39)
[2021-11-25] MEDS: lisinopriL 20 MG TAB PO SCH (12:40)
[2021-11-25] MEDS: METOPROLOL TARTRATE 25 MG TAB PO SCH ×2 (12:40→22:02)
[2021-11-25] MEDS: ATORVASTATIN 10 MG TAB PO SCH (12:40)
[2021-11-25] MEDS: ASPIRIN 81 MG PO SCH ×2 (12:40→22:02)
--- NOTE | 2021-11-25 13:01 | NM ---
EXAMINATION TYPE: NM stress lexiscan cardiolite DATE OF EXAM: 11/25/2021 COMPARISON: NONE HISTORY: Chest pain TECHNIQUE: After the intravenous administration of 9.99 mCi Tc 99m Sestamibi - Cardiolite resting SP ECT images acquired 60 minutes post injection. The patient received 0.4mg Lexiscan, 24.1 mCi Tc 99m Sestamibi - Stress images obtained [address] injection FINDINGS: Review of stress and rest SPECT images demonstrates decreased uptake along the inferior wall on both stress and rest images, somewhat more so on rest images than stress images towards the apex, there is some decreased uptake along the lateral wall and septum greater on the stress images than on rest im ages towards the base of the heart. Gated analysis shows normal wall motion with an estimated left v entricular ejection fraction of 40 %. IMPRESSION: Pharmacologically induced left ventricular myocardial ischemia, there may have been remote infarct ad ditionally.
[2021-11-25] MEDS ORDERED: ALPRAZolam 0.25 MG TAB PO PRN (13:35)
[2021-11-25] MEDS ORDERED: ALPRAZolam 0.5 MG TAB PO PRN (13:35)
[2021-11-25 17:33] LABS: Glucose,Whole Blood 219 mg/dL (75-99)
[2021-11-25 20:10] LABS: Glucose,Whole Blood 179 mg/dL (75-99)
[2021-11-25] MEDS: NON FORMULARY DRUG (Propylene Glycol/Peg 400/Pf [Systane 0.3-0.4% Eye Drop] 1 EACH Dropere BOTH EYES SCH (22:05)
[2021-11-25] MEDS: LORazepam 0.5 MG TAB PO PRN (22:15)
--- NOTE | 2021-11-25 23:10 | P.PN ---
Subjective Progress Note Date: 11/25/21 Patient is a 81-year-old male with a known history of hypertension, hyperlipidemia, diabetes type 2 insulin-dependent and history of prostate cancer status post surgery and prior cardiac catheterization several years ago, anxiety and previous history of smoking presents to ER with complaints of chest pain. Patient states that he woke up in the morning with chest pain and felt like tightness in the left retrosternal region. Pain lasted for about 4 hours and mild persistent since then. No associated shortness of breath. No nausea or vomiting or headache or dizziness or lightheadedness. No diaphoresis. Denied any leg swelling. No recent illnesses. Denies any exertional dyspnea. No fever no chills. Chest x-ray showed no acute cardiopulmonary process EKG showed normal sinus rhythm Laboratory showed WBC 8.9 hemoglobin 15.6 and platelets 242 sodium 136 potassium 4.6 chloride 105 BUN 23 and creatinine 0.87 blood sugar is 173 liver enzymes are not elevated troponin x2 - and magnesium 2.1. 11/25/2021 Patient is seen and evaluated this morning and is being closely monitored. Cardiology following and patient is scheduled for stress test. Patient is continued with chest pain. Patient is afebrile. Will await stress test results. Recommend to continue with cardiac monitoring. Will order repeat am labs. Review of systems: Constitutional: No reports of fatigue, no reports of fever, or chills Cardiovascular: No reports of chest pain or palpitations currently, intermittent chest tightness Respiratory: No reports of shortness of breath,continues to be short of breath and coughing GI: No reports of nausea, no reports of vomiting : No reports of dysuria or retention Neurovascular:no reports of generalized weakness All medications have been reviewed Active Medications Alprazolam (Alprazolam 0.25 Mg Tab) 0.25 mg PO Q6HR PRN PRN Reason: Mild Anxiety Alprazolam (Alprazolam 0.5 Mg Tab) 0.5 mg PO Q6HR PRN PRN Reason: Moderate Anxiety Aspirin (Aspirin 81 Mg) 81 mg PO BID [facility] Last Admin: 11/25/21 22:02 Dose: 81 mg Documented by: Atorvastatin Calcium (Atorvastatin 10 Mg Tab) 10 mg PO DAILY [facility] Last Admin: 11/25/21 12:40 Dose: 10 mg Documented by: Heparin Sodium (Porcine) (Heparin Sodium,Porcine/Pf 5,000 Unit/0.5 Ml Syringe) 5,000 unit SQ Q8HR [facility] Last Admin: 11/25/21 16:18 Dose: Not Given Documented by: Heparin Sodium (Porcine) 10, (000 unit/ Sodium Chloride) 1,001 mls @ 999 mls/hr IRRIGATION ONCE PRN PRN Reason: INTRA-OP Stop: 11/26/21 23:00 Heparin Sodium (Porcine) 2,500 (unit/ Sodium Chloride) 250.5 mls @ 250 mls/hr IRRIGATION ONCE PRN PRN Reason: INTRA-OP Stop: 11/26/21 23:00 Sodium Chloride 1,000 ml/ IV (Solution) 1,000 mls @ 272.16 mls/hr IV .Q3H41M ONE Stop: 11/26/21 03:40 Insulin Aspart (Insulin Aspart (Novolog) 100 Unit/Ml Vial) 0 unit SQ ACHS [facility]; Protocol Last Admin: 11/25/21 22:04 Dose: 2 unit Documented by: Lisinopril (Lisinopril 20 Mg Tab) 20 mg PO DAILY [facility] Last Admin: 11/25/21 12:40 Dose: 20 mg Documented by: Lorazepam (Lorazepam 0.5 Mg Tab) 0.5 mg PO DAILY PRN PRN Reason: Anxiety Last Admin: 11/25/21 22:15 Dose: 0.5 mg Documented by: Metoprolol Tartrate (Metoprolol Tartrate 25 Mg Tab) 12.5 mg PO BID [facility] Last Admin: 11/25/21 22:02 Dose: 12.5 mg Documented by: Nitroglycerin (Nitroglycerin Sl Tabs 0.4 Mg Tab) 0.4 mg SUBLINGUAL Q5M PRN PRN Reason: Chest Pain Nitroglycerin (Nitroglycerin Sl Tabs 0.4 Mg Tab) 0.4 mg SUBLINGUAL Q5M PRN PRN Reason: Chest Pain Non-Formulary Medication (Dulaglutide [Trulicity]) 0.75 mg SQ [facility] Non-Formulary Medication (Propylene Glycol/Peg 400/Pf [Systane 0.3-0.4% Eye Drop]) 1 dropper BOTH EYES [facility] Last Admin: 11/25/21 22:05 Dose: Not Given Documented by: Sertraline HCl (Sertraline 100 Mg Tab) 150 mg PO DAILY [facility] Last Admin: 11/25/21 12:39 Dose: 150 mg Documented by: Sodium Chloride (Sodium Chloride 0.9% Flush 10 Ml Syringe) 10 ml IV BID [facility]OT Last Admin: 11/25/21 22:04 Dose: 10 ml Documented by: PHYSICAL EXAMINATION: GENERAL: The patient is alert and oriented x3 , well developed, well nourished HEENT: Pupils are round and equally reacting to light. EOMI. no scleral icterus. No conjunctival pallor. Normocephalic, atraumatic. No pharyngeal erythema. No thyromegaly. CARDIOVASCULAR: S1 and S2 muffled PULMONARY: diminished breath sounds bilaterally with some mild scattered rhonchi noted. ABDOMEN: soft. non-tender on exam. non-distended, normoactive bowel sounds. No palpable organomegaly. MUSCULOSKELETAL: No joint swelling or deformity. EXTREMITIES: No cyanosis, clubbing, or pedal edema. NEUROLOGICAL: no focal deficits noted. SKIN: No rashes. no lesions noted Assessment: Atypical chest pain. Ruled out ACS. status post positive stress test Prior history of cardiac catheterization 5 years ago with some plaque buildup. Hypertension Diabetes type 2 insulin-dependent Hyperlipidemia History of prostate cancer status post surgery Anxiety Please history of smoking DVT prophylaxis with heparin subcu Plan: Patient will be continued on telemetry monitoring. Serial EKG and troponin x2 - . Patient had previous history of stress test about couple years ago and also has follow-up appointment with cardiology although patient continued with chest pain and underwent stress testing today and was positive and plan is now for NPO at midnight and cardiac catheterization in the am. Cardiology following closely. Given patients severity of symptoms and positive stress testing, patient will require more than 2 night hospitalization and requires inpatient monitoring. Continue cardiac monitoring. Continue with insulin sliding scale for better blood sugar control. Patient was given a dose of aspirin and continue with aspirin and statins and metoprolol. Repeat am labs. Prognosis guarded. Objective - Vital Signs Vital signs: Vital Signs Temp 98 F 11/25/21 06:59 Pulse 60 11/25/21 06:59 Resp 18 11/25/21 06:59 BP 119/55 11/25/21 06:59 Pulse Ox 96 11/25/21 06:59 Intake & Output 11/24/21 11/25/21 11/25/21 18:59 06:59 18:59 Weight 90.718 kg Other: # Voids 2 - Labs CBC & Chem 7: 11/24/21 12:28 11/25/21 06:43 Labs: Abnormal Lab Results - Last 24 Hours (Table) 11/24/21 11/24/21 11/24/21 Range/Units 12:28 17:30 20:48 Sodium 136 L (137-145) mmol/L BUN 23 H (9-20) mg/dL Glucose 173 H (74-99) mg/dL POC Glucose (mg/dL) 174 H 157 H (75-99) mg/dL 11/25/21 11/25/21 Range/Units 02:16 06:49 Sodium (137-145) mmol/L BUN (9-20) mg/dL Glucose (74-99) mg/dL POC Glucose (mg/dL) 137 H 127 H (75-99) mg/dL
[2021-11-26] MEDS ORDERED: SODIUM CHLORIDE 0.9% 1,000 ML in EMPTY BAG 1 BAG IV ONE
[2021-11-26] MEDS ORDERED: HEPARIN SODIUM,PORCINE 10,000 UNIT in SODIUM CHLORIDE 0.9% 1,000 ML IRRIGATION PRN (07:00)
[2021-11-26] MEDS ORDERED: HEPARIN SODIUM,PORCINE 2,500 UNIT in SODIUM CHLORIDE 0.9% 250 ML IRRIGATION PRN (07:00)
[2021-11-26 07:20] LABS: Glucose,Whole Blood 107 mg/dL (75-99)
[2021-11-26 08:08] LABS: African American GFR (CKD) >90 (>60 ml/min/1.73 sqM); Anion Gap 7 mmol/L; Blood Urea Nitrogen 21 mg/dL (9-20); Calcium 8.8 mg/dL (8.4-10.2); Carbon Dioxide 22 mmol/L (22-30); Chloride 106 mmol/L (98-107); Glucose 124 mg/dL (74-99); Non-African American GFR(CKD) 82 (>60 ml/min/1.73 sqM); Potassium 4.3 mmol/L (3.5-5.1); Sodium 135 mmol/L (137-145)
[2021-11-26 08:19] LABS: Basophils % (A) 0 %; Eosinophils # (A) 0.1 k/uL (0-0.7); Eosinophils % (A) 1 %; HGB 14.9 gm/dL (13.0-17.5); Lymphocytes # (A) 1.4 k/uL (1.0-4.8); Lymphocytes % (A) 17 %; MCH 32.1 pg (25.0-35.0); MCHC 33.1 g/dL (31.0-37.0); Mean Platelet Volume 7.3; Monocytes # (A) 0.5 k/uL (0-1.0); Monocytes % (A) 6 %; Neutrophils # (A) 6.2 k/uL (1.3-7.7); Neutrophils % (A) 74 %; Platelet Count 202 k/uL (150-450); RBC 4.64 m/uL (4.30-5.90); RDW 12.9 % (11.5-15.5); WBC 8.4 k/uL (3.8-10.6)
[2021-11-26] MEDS: ATORVASTATIN 10 MG TAB PO SCH (08:47)
[2021-11-26] MEDS: SERTRALINE 100 MG TAB PO SCH (08:47)
[2021-11-26] MEDS: ASPIRIN 81 MG PO SCH ×2 (08:47→21:34)
[2021-11-26] MEDS: lisinopriL 20 MG TAB PO SCH (08:47)
[2021-11-26] MEDS: METOPROLOL TARTRATE 25 MG TAB PO SCH ×2 (08:47→21:28)
[2021-11-26] MEDS: HEPARIN SODIUM,PORCINE/PF 5,000 UNIT/0.5 ML SYRINGE SQ SCH ×3 (08:48→23:38)
[2021-11-26] MEDS: INSULIN ASPART (NovoLOG) 100 UNIT/ML VIAL SQ SCH ×4 (08:48→21:30)
--- NOTE | 2021-11-26 10:01 | ECHOF ---
Referral Reason:chest pain MEASUREMENTS -------- HEIGHT: 177.8 cm WEIGHT: 90.7 kg BP: RVIDd: 3.9 cm (< 3.3) IVSd: 1.3 cm (0.6 - 1.1) LVIDd: 4.6 cm (3.9 - 5.3) LVPWd: 1.4 cm (0.6 - 1.1) IVSs: 2.0 cm LVIDs: 2.9 cm LVPWs: 1.5 cm LA Diam: 3.8 cm (2.7 - 3.8) LAESV Index (A-L): 18.20 ml/m Ao Diam: 3.4 cm (2.0 - 3.7) AV Cusp: 2.2 cm (1.5 - 2.6) MV EXCURSION: 16.963 mm (> 18.000) MV EF SLOPE: 66 mm/s (70 - 150) EPSS: 0.8 cm MV E Magdi: 0.68 m/s MV DecT: 263 ms MV A Magdi: 1.03 m/s MV E/A Ratio: 0.66 RAP: 5.00 mmHg RVSP: 32.30 mmHg FINDINGS -------- Sinus rhythm. This was a technically good study. The left ventricular size is normal. There is mild concentric left ventricular hypertrophy. Overa ll left ventricular systolic function is normal with, an EF between 60 - 65 %. The right ventricle is moderately enlarged. Normal LA size by volume 22+/-6 ml/m2. The right atrium is normal in size. Interatrial and interventricular septum intact. The aortic valve is trileaflet, and appears structurally normal. No aortic stenosis or regurgitation. There is trace mitral regurgitation. Mild tricuspid regurgitation present. Right ventricular systolic pressure is normal at < 35 mmHg. The pulmonic valve is normal. The aortic root size is normal. Normal inferior vena cava with normal inspiratory collapse consistent with estimated right atrial pre ssure of 5 mmHg. There is no pericardial effusion. CONCLUSIONS -------- 1. The left ventricular size is normal. 2. There is mild concentric left ventricular hypertrophy. 3. Overall left ventricular systolic function is normal with, an EF between 60 - 65 %. 4. The right ventricle is moderately enlarged. 5. Normal LA size by volume 22+/-6 ml/m2. 6. There is trace mitral regurgitation. 7. Mild tricuspid regurgitation present. 8. There is no pericardial effusion. BELL SPINNER: Shakila Flowers RDCS
[2021-11-26 12:06] LABS: Glucose,Whole Blood 121 mg/dL (75-99)
--- NOTE | 2021-11-26 13:27 | P.PN ---
Subjective Progress Note Date: 11/26/21 Principal diagnosis: Chest pain Patient is a pleasant 81-year-old male presented to the emergency room with chest pain. He reported that he woke up in the morning with chest pain and tightness in the left retrosternal region. Patient continues to have chest pain since admission. Denied shortness of breath, nausea, vomiting, headache, dizziness, diaphoresis, edema, fever. Chest x-ray was negative for acute findings. EKG showed normal sinus rhythm. Troponins were all negative. Patient has a pertinent medical history of hypertension, hyperlipidemia, 2 diabetes, history of prostate cancer, previous cardiac catheterization 8 years ago. Hospitalist coverage 11/24/21-11/25/21. 11/26/2021 Patient was seen and examined at bedside. Patient reports continued chest pain on left breast area, describes it as an ache. Patient denies shortness of breath, dizziness, headache, fever, edema. Patient is waiting to go down for cardiac catheterization. Labs were reviewed and are stable. Echocardiogram found a EF of 60%. Stress test done yesterday found left ventricular myocardial ischemia. Will await cardiology recommendations. Objective - Vital Signs Vital signs: Vital Signs Temp 98.3 F 11/26/21 06:52 Pulse 66 11/26/21 07:24 Resp 16 11/26/21 07:24 BP 132/78 11/26/21 06:52 Pulse Ox 97 11/26/21 11:09 Intake & Output 11/25/21 11/26/21 11/26/21 18:59 06:59 18:59 Intake Total 240 Balance 240 Weight 90.72 kg Intake: Oral 240 Other: Voiding Method Toilet # Voids 1 1 - Constitutional General appearance: Present: cooperative, no acute distress - EENT Eyes: Present: EOMI, PERRLA ENT: Present: hard of hearing, normal oropharynx Ears: bilateral: normal - Neck Neck: Present: normal ROM Carotids: bilateral: upstroke normal Thyroid: bilateral: normal size - Respiratory Respiratory: bilateral: CTA - Cardiovascular Heart rate: 60 Rhythm: regular Heart sounds: normal: S1, S2 - Peripheral pulses radial pulse Peripheral Pulses: bilateral: Normal - Gastrointestinal General gastrointestinal: Present: normal bowel sounds, soft - Integumentary Integumentary: Present: normal, normal turgor - Neurologic Neurologic: Present: CNII-XII intact - Musculoskeletal Musculoskeletal: Present: gait normal - Psychiatric Psychiatric: Present: A&O x's 3, appropriate affect, intact judgment & insight - Allied health notes Allied health notes reviewed: nursing - Labs CBC & Chem 7: 11/26/21 07:20 11/26/21 07:20 Labs: Abnormal Lab Results - Last 24 Hours (Table) 11/25/21 11/25/21 11/26/21 Range/Units 17:21 20:09 06:55 Sodium (137-145) mmol/L BUN (9-20) mg/dL Glucose (74-99) mg/dL POC Glucose (mg/dL) 219 H 179 H 107 H (75-99) mg/dL 11/26/21 11/26/21 Range/Units 07:20 12:02 Sodium 135 L (137-145) mmol/L BUN 21 H (9-20) mg/dL Glucose 124 H (74-99) mg/dL POC Glucose (mg/dL) 121 H (75-99) mg/dL - Imaging and Cardiology Chest x-ray: report reviewed Assessment and Plan Assessment: Chest pain, acute coronary syndrome ruled out Positive stress test for ischemia, awaiting cardiac cath Hypertension Type 2 diabetes Hyperlipidemia History of prostate cancer anxiety Plan: Patient is awaiting cardiac catheterization, will wait for postoperative recommendations Continue monitoring glucose, sliding scale and home medications ordered Continue monitoring vital signs Continue current medication regimen Further recommendations to come based on patient's clinical course Time with Patient: Greater than 30
[2021-11-26 18:05] LABS: Glucose,Whole Blood 192 mg/dL (75-99)
[2021-11-26 21:05] LABS: Glucose,Whole Blood 127 mg/dL (75-99)
[2021-11-26] MEDS: NON FORMULARY DRUG (Propylene Glycol/Peg 400/Pf [Systane 0.3-0.4% Eye Drop] 1 EACH Dropere BOTH EYES SCH (21:30)
[2021-11-26] MEDS: LORazepam 0.5 MG TAB PO PRN (21:34)
[2021-11-26] MEDS: SODIUM CHLORIDE 0.9% 1,000 ML IV SCH (23:39)
[2021-11-27] MEDS: ATORVASTATIN 10 MG TAB PO SCH (06:11)
[2021-11-27] MEDS: ASPIRIN 81 MG PO SCH (06:12)
[2021-11-27] MEDS: METOPROLOL TARTRATE 25 MG TAB PO SCH (06:12)
[2021-11-27] MEDS: SERTRALINE 100 MG TAB PO SCH (06:13)
[2021-11-27] MEDS: lisinopriL 20 MG TAB PO SCH (06:13)
[2021-11-27] MEDS ORDERED: HEPARIN SODIUM,PORCINE 2,500 UNIT in SODIUM CHLORIDE 0.9% 250 ML IRRIGATION PRN (07:00)
[2021-11-27] MEDS ORDERED: HEPARIN SODIUM,PORCINE 10,000 UNIT in SODIUM CHLORIDE 0.9% 1,000 ML IRRIGATION PRN (07:00)
[2021-11-27 07:07] LABS: Glucose,Whole Blood 142 mg/dL (75-99)
[2021-11-27] MEDS ORDERED: IV FLUID CONTINUATION 1,000 ML IV ONE (07:15)
[2021-11-27 07:17] LABS: African American GFR (CKD) >90 (>60 ml/min/1.73 sqM); Anion Gap 5 mmol/L; Blood Urea Nitrogen 24 mg/dL (9-20); Calcium 8.3 mg/dL (8.4-10.2); Carbon Dioxide 22 mmol/L (22-30); Chloride 109 mmol/L (98-107); Glucose 143 mg/dL (74-99); Magnesium 2.1 mg/dL (1.6-2.3); Non-African American GFR(CKD) 82 (>60 ml/min/1.73 sqM); Potassium 4.5 mmol/L (3.5-5.1); Sodium 136 mmol/L (137-145)
[2021-11-27] MEDS ORDERED: VERAPAMIL 2.5 MG/ML 2 ML AMP ONE (07:22)
[2021-11-27] MEDS ORDERED: HEPARIN SODIUM 1,000 UN/ML (10ML VL) ONE (07:22)
[2021-11-27] MEDS ORDERED: LIDOCAINE 1% INJ 10MG/ML (20 ML MDV) ONE (07:22)
[2021-11-27] MEDS ORDERED: methylPREDNISolone SOD SUCCI 125 MG/2 ML VIAL ONE (07:32)
[2021-11-27] MEDS ORDERED: MIDAZOLAM 2 MG/2 ML VIAL IV ONE (07:35)
[2021-11-27] MEDS ORDERED: LIDOCAINE 1% INJ 10MG/ML (20 ML MDV) SQ ONE (07:35)
[2021-11-27] MEDS ORDERED: methylPREDNISolone SOD SUCCI 125 MG/2 ML VIAL IV ONE (07:35)
[2021-11-27] MEDS: INSULIN ASPART (NovoLOG) 100 UNIT/ML VIAL SQ SCH ×3 (07:53→18:10)
[2021-11-27] MEDS ORDERED: IOPAMIDOL-370 100ML BTL INJ ONE (07:57)
[2021-11-27] MEDS ORDERED: RX INFO: IV CONTRAST WAS GIVEN 1 EACH MISC MISCELLANE PRN (08:00)
[2021-11-27] MEDS ORDERED: SODIUM CHLORIDE 0.9% 1,000 ML IV SCH (08:00)
--- NOTE | 2021-11-27 09:31 | CC ---
CARDIAC CATHETERIZATION REPORT DATE OF SERVICE: 11/27/2021 PROCEDURE: Left heart catheterization, coronary angiography. PERFORMED BY: Dr. Janice Victor. Moderate conscious sedation time was 17 minutes. Patient was administered Versed. Oxygen saturation, hemodynamics and EKG were monitored closely. CLINICAL INFORMATION: Mr. Bernardo is a 81-year-old gentleman with a history of hypertension, hyperlipidemia, type 2 diabetes with noncritical CAD based on a cath in 2013. He presented to the hospital with chest pain suggestive of angina, had negative troponins, but because of ongoing chest pain, he was advised cardiac cath after due discussion regarding risks, benefits and options. PROCEDURE NOTE: Under local anesthesia and strict aseptic precautions, a 6-Welsh introducer was placed in the right femoral artery. The radial pulse was suboptimal. Using standard Koby catheters I performed coronary angiography, and the same right catheter was used to check LV pressures, but LV gram was not performed. There was a question of contrast allergy. He received 75 mg of Solu-Medrol. No issues were noted. The sheath was taken out and manual compression used to secure hemostasis and a FemoStop applied with good hemostasis. He was sent to the room in stable condition. CARDIAC CATHETERIZATION FINDINGS: The left ventricular end-diastolic pressure was 13 mmHg without any gradient across the aortic valve. CORONARY ANGIOGRAPHY FINDINGS: RIGHT CORONARY ARTERY: Dominant vessel. No significant disease. Distally bifurcates into smaller-caliber PDA, larger-caliber PLV. No significant disease; only minor irregularities. LEFT MAIN CORONARY ARTERY: Short, patent, disease-free vessel free of significant disease. Bifurcates into LAD and circumflex. No significant disease in the left main. LEFT ANTERIOR DESCENDING CORONARY ARTERY: This vessel has about a 30% to 35% narrowing proximally, gives off a diagonal branch that has a 60% narrowing in the mid portion. Small diagonal, 2 mm caliber. LAD then continues onwards all the way to the apex. Good caliber, good distribution. Minor irregularities. No significant disease. Proximal LAD therefore has about a 35% stenosis, best seen in the caudal projection. Small diagonal comes off which has no significant disease. LEFT POSTERIOR CIRCUMFLEX CORONARY ARTERY: Nondominant vessel yet good caliber and good distribution. Gives off 2 obtuse marginals, then runs in the AV groove and gives off a left atrial circumflex branch. Minor irregularities are noted in the circumflex marginal branches of no more than 35%. Good-distribution circumflex vessel with no critical stenosis. LEFT VENTRICULOGRAM: Left ventriculogram was not performed. FINAL IMPRESSION: This patient has moderate noncritical CAD of about 40% or so. Proximal LAD has a 35% to 40%, circumflex has a 35% lesion. Dominant RCA has no significant lesion. Normal filling pressures. No gradient. RECOMMENDATIONS: Continued medical therapy with risk factor modification advised. Patient will be discharged later this evening after hydration. Results were discussed with the patient and family. MMODL / IJN: [id number] /
[2021-11-27] MEDS: HEPARIN SODIUM,PORCINE/PF 5,000 UNIT/0.5 ML SYRINGE SQ SCH ×2 (09:48→18:00)
[2021-11-27 09:49] LABS: Basophils # (A) 0.02 X 10*3/uL (0.00-0.10); Basophils % (A) 0.3 %; Eosinophils # (A) 0.13 X 10*3/uL (0.04-0.35); Eosinophils % (A) 1.7 %; HCT 43.4 % (39.6-50.0); HGB 13.8 g/dL (13.0-17.0); Immature Grans, Automated 0.8 %; MCH 31.2 pg (27.0-32.0); MCHC 31.8 g/dL (32.0-37.0); Mean Platelet Volume 9.5 fL (9.5-12.2); Monocytes # (A) 0.66 X 10*3/uL (0.20-1.00); Monocytes % (A) 8.4 %; NRBC Per 100 WBC 0 /100 WBCS (0.0-0.0); Neutrophils # (A) 5.15 X 10*3/uL (1.80-7.70); Neutrophils % (A) 65.8 %; Platelet Count 198 X 10*3/uL (140-440); RBC 4.43 X 10*6/uL (4.40-5.60); RDW 12.3 % (11.5-14.5); WBC 7.82 X 10*3/uL (4.50-10.00)
[2021-11-27] MEDS ORDERED: HYDROcodone/APAP 5-325MG 1 EACH TAB PO PRN (10:11)
[2021-11-27 12:27] VITALS: TEMP 97.8
[2021-11-27 12:39] LABS: Glucose,Whole Blood 373 mg/dL (75-99)
[2021-11-27 12:41] LABS: Glucose,Whole Blood 361 mg/dL (75-99)
[2021-11-27 14:57] VITALS: BP 120/56; PULSE 85; RESP 16
[2021-11-27] MEDS: SODIUM CHLORIDE 0.9% 1,000 ML IV SCH (16:50)
[2021-11-27] MEDS ORDERED: NON FORMULARY DRUG (Dulaglutide [Trulicity] 0.75 MG/0.5 ML Each) SQ SCH (17:09)
[2021-11-27 17:12] LABS: Glucose,Whole Blood 354 mg/dL (75-99)
--- NOTE | 2021-11-28 09:38 | P.DS ---
Providers Date of admission: 11/25/21 14:13 Expected date of discharge: 11/27/21 Attending physician: Carlton Felix Consults: 11/24/21 13:18 Consult Physician Urgent Consulting Provider: Angy Victor Consult Reason/Comments: cp Do you want consulting provider notified?: Yes Primary care physician: Carlton Felix Hospital Course: Final diagnosis Chest pain, acute coronary syndrome ruled out Positive stress test for ischemia Status post cardiac catheterization Hypertension Type 2 diabetes Hyperlipidemia History of prostate cancer anxiety DVT prophylaxis GI prophylaxis Full code Discharge disposition Patient is being discharged in a stable condition with guarded prognosis to home. Patient will follow-up with Dr. Felix in the outpatient setting upon discharge. Patient is to continue with current medication regimen per cardiology and close outpatient follow-up with cardiology in 1-2 weeks. Total time taken is greater than 35 minutes. Hospital course This is a 81-year-old male who was recently admitted with chest pain and was being closely monitored. Cardiology following and patient underwent stress test that was positive for reproducible ischemia recommending cardiac catheterization. Patient underwent cardiac catheterization this morning and no interventions done surgically at this time recommending maximizing medical management and close outpatient follow-up with primary care provider along with cardiology in one week. Patient denies any further chest pain at this time and would like to go home. Currently on bed rest and IV hydration per protocol after cardiac catheterization. Cardiac catheterization via the right groin method. Currently no reports of chest pain, shortness of breath, or palpitations. Patient is afebrile. No reports of nausea or vomiting and patient is tolerating diet. Patient will be discharged home later today after bed rest and IV hydration. PHYSICAL EXAMINATION: GENERAL: The patient is alert and oriented x3 , well developed, well nourished HEENT: Pupils are round and equally reacting to light. EOMI. no scleral icterus. No conjunctival pallor. Normocephalic, atraumatic. No pharyngeal erythema. No thyromegaly. CARDIOVASCULAR: S1 and S2 muffled PULMONARY: diminished breath sounds bilaterally with no wheezing or rhonchi noted. ABDOMEN: soft. non-tender on exam. non-distended, normoactive bowel sounds. No palpable organomegaly. MUSCULOSKELETAL: No joint swelling or deformity. EXTREMITIES: No cyanosis, clubbing, or pedal edema. NEUROLOGICAL: no focal deficits noted. SKIN: No rashes. no lesions noted Please refer to medication reconciliation sheet for a list of medications. The impression and plan of care has been dictated by Maria Elena Thurman, nurse practitioner as directed. Dr. Amrita MD I have performed a history and examination and MDM of this patient, discussed the same with the dictator, and agree with the dictator's assessment and plan as written ,documented as a scribe. Based on total visit time, I have performed more than 50% of the visit. Any additional findings or plans will be noted. Patient Condition at Discharge: Stable Plan - Discharge Summary Discharge Rx Participant: No New Discharge Prescriptions: New lisinopriL [Zestril] 20 mg PO DAILY 30 Days #30 tab Continue Lovastatin [Mevacor] 40 mg PO DAILY Metoprolol Tartrate 12.5 mg PO BID Sertraline [Zoloft] 150 mg PO DAILY glyBURIDE [Diabeta] 7.5 mg PO DAILY Nitroglycerin Sl Tabs [Nitrostat] 0.4 mg SUBLINGUAL Q5M PRN PRN Reason: Chest Pain Aspirin EC [Ecotrin Low Dose] 81 mg PO BID Propylene Glycol/Peg 400/Pf [Systane 0.3-0.4% Eye Drop] 1 dropper BOTH EYES HS LORazepam [Ativan] 0.5 mg PO DAILY PRN PRN Reason: Anxiety Dulaglutide [Trulicity] 0.75 mg SQ WE Discontinued Lisinopril-Hctz 20-12.5 mg [Zestoretic 20-12.5] 1 tab PO BID Discharge Medication List Lovastatin [Mevacor] 40 mg PO DAILY 10/09/17 [History] Metoprolol Tartrate 12.5 mg PO BID 10/09/17 [History] Sertraline [Zoloft] 150 mg PO DAILY 10/09/17 [History] glyBURIDE [Diabeta] 7.5 mg PO DAILY 02/23/19 [History] Aspirin EC [Ecotrin Low Dose] 81 mg PO BID 11/24/21 [History] Dulaglutide [Trulicity] 0.75 mg SQ WE 11/24/21 [History] LORazepam [Ativan] 0.5 mg PO DAILY PRN 11/24/21 [History] Nitroglycerin Sl Tabs [Nitrostat] 0.4 mg SUBLINGUAL Q5M PRN 11/24/21 [History] Propylene Glycol/Peg 400/Pf [Systane 0.3-0.4% Eye Drop] 1 dropper BOTH EYES HS 11/24/21 [History] lisinopriL [Zestril] 20 mg PO DAILY 30 Days #30 tab 11/27/21 [Rx] Follow up Appointment(s)/Referral(s): Carlton Felix MD [Primary Care Provider] - 1-2 days Angy Victor MD [STAFF PHYSICIAN] - 12/04/21 1:45 pm () Patient Instructions/Handouts: Chest Pain (DC), Heart Catheterization (DC) Activity/Diet/Wound Care/Special Instructions: Discharge pending clearance from bed rest and hydration and also clearance from cardiology Activity Limited until follow-up Follow-up with primary care provider on discharge Follow-up with cardiology as discussed and scheduled Continue taking medications as prescribed Continue heart healthy consistent carb diet Discharge Disposition: HOME SELF-CARE
== END 2021-11-27 19:00 | disposition home or self-care (01) | DRG 287 ==
LOC: EC 12:13 → 6NMEDSUR 13:18 → OBSVTOIN 11-25 14:13
PROVIDERS: ADMIT Family Medicine; ATTEND Family Medicine
PROC: 4A023N7 Measurement of Cardiac Sampling and Pressure, Left Heart, Percutaneous Approach (ICD-10-PCS; principal; 2021-11-27 07:30)
PROC: B2111ZZ Fluoroscopy of Multiple Coronary Arteries using Low Osmolar Contrast (ICD-10-PCS; principal; 2021-11-27 07:30)
DX: R07.9 Chest pain, unspecified (principal); E11.9 Type 2 diabetes mellitus without complications; E78.5 Hyperlipidemia, unspecified; F41.9 Anxiety disorder, unspecified; I10 Essential (primary) hypertension; I25.10 Atherosclerotic heart disease of native coronary artery without angina pectoris; J44.9 Chronic obstructive pulmonary disease, unspecified; Z79.4 Long term (current) use of insulin; Z79.84 Long term (current) use of oral hypoglycemic drugs; Z79.82 Long term (current) use of aspirin; Z79.899 Other long term (current) drug therapy; Z85.46 Personal history of malignant neoplasm of prostate; Z87.891 Personal history of nicotine dependence; Z98.49 Cataract extraction status, unspecified eye; Z98.890 Other specified postprocedural states; Z90.49 Acquired absence of other specified parts of digestive tract
CPT/HCPCS: 36415; 71046; 78452; 80048; 80053; 80061; 83735; 84484; 85025; 85610; 85730; 93005; 93017; 93306; 93458; 94760; 99285

== ENCOUNTER → 2022-01-27 | Outpatient (CLI) | payer MEDICARE ==
--- NOTE | 2022-01-27 11:10 | FL ---
EXAMINATION TYPE: FL UGI air w esophagus DATE OF EXAM: 01/27/2022 10:34 AM COMPARISON: NONE CLINICAL HISTORY: Difficulty in swallowing. A total of 90 seconds of fluoroscopic time was utilized during procedure and 43 images obtained. Preliminary view of the abdomen reveals a normal bowel gas pattern. Upper GI examination was performed according to the air contrast technique. Barium and effervescent crystal was swallowed without difficulty or delay. Esophageal peristalsis and motility are within no rmal limits. There is no evidence for esophageal mass or esophagitis. No reflux seen. The very small sliding-type hiatal hernia noted The stomach has a normal appearance in terms of its size, shape and location. No gastric filling defects or ulcer craters are seen. 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 The duodenal bulb and sweep are also free of intraluminal lesion or ulcer crater. And single contrast cervical esophagram was also performed following the ingestion of thin liquid bar ium. There is evidence of mild aspiration. No masses are seen. No filling defects are evident. IMPRESSION: 1. Small reducible sliding type hiatal hernia. 2. There is evidence of mild aspiration. 3. Gastric diverticulum
== END | disposition home or self-care (01) ==
LOC: RADUSWWP 09:51
PROVIDERS: ATTEND Family Medicine
DX: K44.9 Diaphragmatic hernia without obstruction or gangrene (principal); K31.4 Gastric diverticulum
CPT/HCPCS: 74246

== ENCOUNTER → 2023-10-01 | Outpatient (CLI) | payer MEDICARE ==
[2023-10-01 18:39] LABS: ALT 25 U/L (10-49); AST 16 U/L (14-35); Albumin 4.3 g/dL (3.8-4.9); Albumin/Globulin Ratio 1.87 Ratio (1.60-3.17); Alkaline Phosphatase 91 U/L (41-126); Calcium 9.3 mg/dL (8.7-10.3); Carbon Dioxide 26.7 mmol/L (21.6-31.8); Chloride 101 mmol/L (96-109); Globulin 2.3 g/dL (1.6-3.3); Glucose 339 mg/dL (70-110); Potassium 4.6 mmol/L (3.5-5.5); Sodium 137 mmol/L (135-145); Total Bilirubin 0.4 mg/dL (0.3-1.2); Total Protein 6.6 g/dL (6.2-8.2)
== END | disposition home or self-care (01) ==
LOC: LABWHC1 14:27
PROVIDERS: ATTEND Family Medicine
DX: E78.5 Hyperlipidemia, unspecified (principal)
CPT/HCPCS: 36415; 80053

== ENCOUNTER → 2024-10-24 | Outpatient (CLI) | payer MEDICARE ==
[2024-10-24 15:08] LABS: HCT 48.2 % (39.6-50.0); HGB 15.2 g/dL (13.0-17.0); MCH 30.5 pg (27.0-32.0); MCHC 31.5 g/dL (32.0-37.0); MCV 96.6 FL (80.0-97.0); Mean Platelet Volume 9.4 FL (9.5-12.2); NRBC Per 100 WBC 0 X 10*3/uL (0.00-0.01); Platelet Count 215 X 10*3/uL (140-440); RBC 4.99 X 10*6/uL (4.40-5.60); RDW 12.4 % (11.5-14.5); WBC 8.09 X 10*3/uL (4.50-10.00)
[2024-10-24 15:09] LABS: Basophils # (A) 0.04 X 10*3/uL (0.00-0.10); Basophils % (A) 0.5 %; Eosinophils # (A) 0.15 X 10*3/uL (0.04-0.35); Eosinophils % (A) 1.9 %; Lymphocytes # (A) 1.67 X 10*3/uL (0.90-5.00); Lymphocytes % (A) 20.6 %; Monocytes # (A) 0.85 X 10*3/uL (0.20-1.00); Monocytes % (A) 10.5 %; Neutrophils # (A) 5.32 X 10*3/uL (1.80-7.70); Neutrophils % (A) 65.8 %
[2024-10-24 16:12] LABS: ALT 32 U/L (10-49); AST 24 U/L (14-35); Albumin 4.5 g/dL (3.8-4.9); Albumin/Globulin Ratio 2.05 Ratio (1.60-3.17); Alkaline Phosphatase 91 U/L (41-126); Blood Urea Nitrogen 24.8 mg/dL (9.0-27.0); Calcium 9.4 mg/dL (8.7-10.3); Carbon Dioxide 24.9 mmol/L (21.6-31.8); Chloride 109 mmol/L (96-109); Chol/HDL Ratio 2.55 Ratio; Globulin 2.2 g/dL (1.6-3.3); Glucose 150 mg/dL (70-110); LDL Cholesterol,Calculated 39.8 mg/dL (0.0-131.0); Potassium 4.6 mmol/L (3.5-5.5); Sodium 146 mmol/L (135-145); T4, Free (Free Thyroxine) 1.05 ng/dL (0.80-1.80); Total Bilirubin 0.7 mg/dL (0.3-1.2); Total Protein 6.7 g/dL (6.2-8.2); VLDL Calculation 18.48 mg/dL (5.00-40.00)
[2024-10-24 16:30] LABS: Prostate Specific Antigen <0.01 ng/mL (0.000-6.500)
== END | disposition home or self-care (01) ==
LOC: LABWHC1 08:58
PROVIDERS: ATTEND Family Medicine
DX: E11.69 Type 2 diabetes mellitus with other specified complication (principal); Z85.46 Personal history of malignant neoplasm of prostate
CPT/HCPCS: 36415; 80053; 80061; 83036; 84153; 84439; 84443; 85025

== ENCOUNTER 2025-03-20 07:10 | Day surgery (SDC) | payer MEDICARE ==
[~2025-03-20 07:10] MED LIST changes: +ALPRAZolam 0.25 MG TAB PO PRN; +ALPRAZolam 0.5 MG TAB PO PRN; +HEPARIN SODIUM,PORCINE (1 ML) 2,500 UNIT in SODIUM CHLORIDE 0.9% 250 ML IRRIGATION PRN; +HEPARIN SODIUM,PORCINE 10,000 UNIT in SODIUM CHLORIDE 0.9% 1,000 ML IRRIGATION PRN; -LIDOCAINE 1% 20 ML VIAL (10MG/ML) FOR IV START INTRADERMA PRN; +NITROGLYCERIN SL TABS 0.4 MG TAB SUBLINGUAL PRN; -ONDANSETRON 4 MG/2 ML VIAL IVP ONE
[2025-03-20] MEDS: IV FLUID CONTINUATION 1,000 ML IV ONE (07:21)
[2025-03-20 07:45] LABS: Glucose,Whole Blood 213 mg/dL (70-110)
[2025-03-20 07:49] VITALS: RESP 16; TEMP 96.9
[2025-03-20] MEDS: ATORVASTATIN 80 MG TAB PO STA (07:51)
[2025-03-20] MEDS: ASPIRIN 325 MG TAB PO STA (07:51)
[2025-03-20] MEDS: SODIUM CHLORIDE 0.9% 1,000 ML in EMPTY BAG 1 BAG IV SCH (07:51)
[2025-03-20 07:57] LABS: Basophils # (A) 0.02 10*3/uL (0.00-0.10); Basophils % (A) 0.1 %; Eosinophils # (A) 0.01 10*3/uL (0.04-0.35); Eosinophils % (A) 0.1 %; HCT 42.2 % (39.6-50.0); HGB 14.3 g/dL (13.0-17.0); Lymphocytes # (A) 1.81 10*3/uL (0.90-5.00); Lymphocytes % (A) 13.5 %; MCH 31.7 pg (27.0-32.0); MCHC 33.9 g/dL (32.0-37.0); MCV 93.6 fL (80.0-97.0); Mean Platelet Volume 9.1 fL (9.5-12.2); Monocytes # (A) 0.87 10*3/uL (0.20-1.00); Monocytes % (A) 6.5 %; Neutrophils # (A) 10.66 10*3/uL (1.80-7.70); Neutrophils % (A) 79.4 %; Platelet Count 237 10*3/uL (140-440); RBC 4.51 10*6/uL (4.40-5.60); RDW 12.2 % (11.5-14.5); WBC 13.43 10*3/uL (4.50-10.00)
[2025-03-20 08:08] LABS: African American GFR (CKD) >90 (>60 ml/min/1.73 sqM); Anion Gap 13 mmol/L; Blood Urea Nitrogen 30 mg/dL (9-20); Calcium 9.4 mg/dL (8.4-10.2); Carbon Dioxide 19 mmol/L (22-30); Chloride 104 mmol/L (98-107); Glucose 236 mg/dL (74-99); Non-African American GFR(CKD) 79 (>60 ml/min/1.73 sqM); Sodium 136 mmol/L (137-145)
[2025-03-20 08:20] LABS: Potassium 4.9 mmol/L (3.5-5.1)
[2025-03-20] MEDS: LIDOCAINE 2% (PF) 20 MG/ML 5 ML VIAL SQ ONE (09:45)
[2025-03-20] MEDS: MIDAZOLAM 2 MG/2 ML VIAL IVP ONE ×2 (09:45→09:51)
[2025-03-20] MEDS: HEPARIN SODIUM,PORCINE (1 ML) 2,500 UNIT in SODIUM CHLORIDE 0.9% 250 ML IRRIGATION ONE (09:52)
[2025-03-20] MEDS: HEPARIN SODIUM,PORCINE 10,000 UNIT in SODIUM CHLORIDE 0.9% 1,000 ML IRRIGATION ONE (09:52)
[2025-03-20] MEDS: IOPAMIDOL-370 100ML BTL INTRATHECA ONE (10:03)
--- NOTE | 2025-03-20 10:19 | P.CARDCATH ---
Date of Procedure: 03/20/25 Description of Procedure: History: Patient was referred for cardiac catheterization to evaluate for CAD. This patient is 85 years of age has hypertension diabetes and hyperlipidemia. He had an abnormal stress test with evidence of reversible defect and therefore was advised cardiac catheterization. He had echo last cardiac cath in 2021 which revealed moderate disease for which medical therapy was advised. He presents after due discussion regarding risk benefits and options. He understands all details and wishes to proceed with cardiac catheterization. He had a barely palpable radial pulse therefore the procedure was performed from the right femoral approach Procedure Details: The risks, benefits, complications, treatment options, and expected outcomes were discussed with the patient. The patient and/or family concurred with the proposed plan, giving informed consent. Patient was brought to the [facility] after IV hydration was begun and oral premedication was given. Patient was further sedated with midazolam. Patient was prepped and draped in the usual manner. Under strict aseptic pre cautions and local anesthesia a 6 Ivorian introducer was placed in the right femoral artery. Using a JL 4.0 and a JR 4/0 catheters I performed coronary angiography and the same JR catheter was used to check LV pressures and LV gram was not performed. After the procedure was completed the sheaths and catheters were all removed. Moderate conscious sedation time was minutes. Patient's oxygen saturation hemodynamics and EKG were monitored closely. After the procedure was completed the sheaths and catheters were all removed. Hemostasis was achieved with manual pressure and FemoStop. Moderate conscious sedation time was 21 minutes. Patient was administered Versed oxygen saturation hemodynamics and EKG were monitored closely Findings: Hemodynamics: Left ventricle end-diastolic pressure was 8 mmHg without any gradient across aortic valve Left Main: Short patent vessel mild calcification bifurcates into LAD and circumflex LAD: Good caliber vessel extends along the anterior wall gives off septal and diagonal branches has minor irregularities no significant disease in the LAD the diagonal branch is small in caliber and distribution has about a 50% narrowing. CIRC: Technically nondominant vessel gives off a good sized obtuse marginals and continues distally and there is about a 35 to 40% lesion after the origin of the obtuse marginal branch and a groove branch. This 35 to 40% stenosis is pretty much unchanged compared to the previous angiogram from November 2021. There is therefore moderate disease in the circumflex unchanged from 2021 RCA: Dominant vessel no significant disease distally bifurcates into a PLV and PDA. PLV in the midportion has a 40% narrowing LV: LV gram not performed Closure Device: Manual compression and FemoStop Complications: None Estimated Blood Loss: Minimal Impression: Patient has a right dominant system normal filling pressures no gradient. PLV branch of RCA has a 40% narrowing, circumflex marginal has a 40% narrowing unchanged from 202. LAD has no significant disease diagonal has a 50% narrowing but a small vessel. Pre Procedure Diagnosis: Noncritical triple-vessel CAD Final Post Procedure Diagnosis: Noncritical triple-vessel CAD Recommendation: Findings reviewed with patient and family he will continue medical therapy with risk factor modification. No intervention other than optimization of medical therapy. Will be discharged later on today and I will see him in the office in 48 hours. Complications: None; patient tolerated the procedure well. Disposition: [facility]- hemodynamically stable. Condition: Stable Discharge Disposition: Discharge patient home later on today.
[2025-03-20] MEDS: SODIUM CHLORIDE 0.9% 1,000 ML IV SCH (10:37)
[2025-03-20 15:54] VITALS: BP 143/69; PULSE 89
== END 2025-03-20 16:30 | disposition home or self-care (01) ==
LOC: CATHCVL 07:10
PROVIDERS: ATTEND Internal Medicine Interventional Cardiology
DX: I25.10 Atherosclerotic heart disease of native coronary artery without angina pectoris (principal); I25.84 Coronary atherosclerosis due to calcified coronary lesion; I10 Essential (primary) hypertension; E11.9 Type 2 diabetes mellitus without complications; E78.00 Pure hypercholesterolemia, unspecified; I08.1 Rheumatic disorders of both mitral and tricuspid valves; J44.89 Other specified chronic obstructive pulmonary disease; Z79.84 Long term (current) use of oral hypoglycemic drugs; Z79.82 Long term (current) use of aspirin; Z79.85 Long-term (current) use of injectable non-insulin antidiabetic drugs; Z79.899 Other long term (current) drug therapy; Z88.8 Allergy status to other drugs, medicaments and biological substances
CPT/HCPCS: 93458; 80048; 85025; C1769 ×2; C1894; J2250; J1644 ×2; Q9967; J2003